=== PATIENT | female | born 1945 | race Hispanic/Latino ===

== ENCOUNTER 2018-08-28 14:00 | Emergency (ER) | payer OTHER ==
--- NOTE | 2018-08-28 15:39 | RAD REPORT ---
EXAM DESCRIPTION: CT - [id number] - 08/28/2018 3:22 pm CLINICAL HISTORY: Trauma, head and neck injury. PAIN COMPARISON: No comparisons TECHNIQUE: Axial 5 mm thick images of the head were obtained. Axial 2 mm thick images of the cervical spine were obtained with sagittal and coronal reconstruction images generated and reviewed. All CT scans are performed using dose optimization technique as appropriate and may include automated exposure control or mA/KV adjustment according to patient size. FINDINGS: CT HEAD WITHOUT CONTRAST: No acute hemorrhage, hydrocephalus or extra-axial collection is identified.No areas of brain edema or midline shift. The paranasal sinuses and mastoids are clear.The calvarium is intact. CT CERVICAL SPINE WITHOUT CONTRAST: No fracture or subluxation.Multilevel lower cervical degenerative changes present.No prevertebral sof t tissues swelling is identified. IMPRESSION: No acute intracranial or cervical spine findings. Mild lower cervical spondylosis.
--- NOTE | 2018-08-28 15:56 | ER ---
Nurse's Notes [facility] Name: Kelsi Rolon Age: 72 yrs Sex: Female : 1945 Arrival Date: 08/28/2018 Time: 14:05 Bed 12 Private MD: None, None Diagnosis: Radiculopathy, cervical region Presentation: 08/28 14:08 Presenting complaint: Patient states: "The back of my neck has been hurting for 3 days. aj1 I haven't been able to sleep" Patient denies injury to her neck. Reports that pain radiates into both of her shoulders. Transition of care: patient was not received from another setting of care. Onset of symptoms was August 25, 2018. Risk Assessment: Do you want to hurt yourself or someone else? Patient reports no desire to harm self or others. Initial Sepsis Screen: Does the patient meet any 2 criteria? No. Patient's initial sepsis screen is negative. Does the patient have a suspected source of infection? No. Patient's initial sepsis screen is negative. Care prior to arrival: None. 14:08 Method Of Arrival: Ambulatory aj1 14:08 Acuity: YADIEL 4 aj1 Triage Assessment: 14:10 General: Appears in no apparent distress. uncomfortable, Behavior is calm, cooperative, aj1 appropriate for age. Pain: Complains of pain in neck Pain radiates to left trapezius, right trapezius and neck Pain currently is 8 out of 10 on a pain scale. Quality of pain is described as sharp, Pain began 2-3 days ago. Is continuous, Aggravated by repositioning. Neuro: Level of Consciousness is awake, alert, obeys commands. Cardiovascular: Patient's skin is warm and dry. Respiratory: Airway is patent Respiratory effort is even, unlabored, Respiratory pattern is regular, symmetrical. Historical: - Allergies: 14:10 No Known Allergies; aj1 - Home Meds: 14:10 tamoxifen oral oral [Active]; Folic Acid Oral [Active]; Methotrexate Sodium Oral aj1 [Active]; - PMHx: 14:10 breast cancer- in remission; Rheumatoid Arthritis; aj1 - Immunization history:: Flu vaccine is up to date. - Social history:: Smoking status: Patient/guardian denies using tobacco. - Ebola Screening: : Patient denies travel to an Ebola-affected area in the 21 days before illness onset. Screenin:20 Abuse screen: Denies threats or abuse. Denies injuries from another. Nutritional ss screening: No deficits noted. Tuberculosis screening: No symptoms or risk factors identified. Never had TB. Fall Risk None identified. Assessment: 15:20 General: Appears in no apparent distress. comfortable, Behavior is calm, cooperative, ss Denies fever, feeling ill, fatigue, chills. Pain: Complains of pain in right trapezius and left trapezius and neck Pain currently is 8 out of 10 on a pain scale. Quality of pain is described as aching, tender. Neuro: Level of Consciousness is awake, alert, obeys commands, Oriented to person, place, time, situation. Cardiovascular: Capillary refill < 3 seconds is brisk in bilateral fingers. Respiratory: Airway is patent Respiratory effort is even, unlabored, Respiratory pattern is regular, symmetrical. EENT: Oral mucosa is moist. Throat is clear. Derm: Skin is intact, is healthy with good turgor, Skin is pink, warm \\T\\ dry. normal. Musculoskeletal: Circulation, motion, and sensation intact. Range of motion: intact in all extremities, Swelling absent. Vital Signs: 14:10 BP 149 / 83; Pulse 75; Resp 18; Temp 97.9; Pulse Ox 98% on R/A; Weight 78.47 kg (R); aj1 Height 5 ft. 0 in. (152.40 cm) (R); Pain 8/10; 14:10 Body Mass Index 33.79 (78.47 kg, 152.40 cm) aj1 ED Course: 14:05 Patient arrived in ED. mr 14:07 None, None is Private Physician. mr 14:09 Triage completed. aj1 14:10 Arm band placed on Patient placed in an exam room. aj1 15:02 Natalie Nieves FNP-C is PHCP. kb 15:02 Anthony London MD is Attending Physician. kb 15:20 Susan Monique RN is Primary Nurse. ss 15:20 Patient has correct armband on for positive identification. Bed in low position. Call ss light in reach. 15:22 CT Head C Spine In Process Unspecified. EDMS 15:23 CT completed. Patient tolerated procedure well. Patient moved to CT via wheelchair. vr Patient moved back from CT. 16:02 No provider procedures requiring assistance completed. Patient did not have IV access ss during this emergency room visit. Administered Medications: No medications were administered Outcome: 15:56 Discharge ordered by . antonio 16:02 Discharged to home ambulatory, with family. ss 16:02 Condition: good 16:02 Discharge instructions given to patient, family, Instructed on discharge instructions, follow up and referral plans. medication usage, Demonstrated understanding of instructions, follow-up care, medications, Prescriptions given X 2. 16:03 Patient left the ED. ss Signatures: Dispatcher [employer] EDAZ Natalie Nieves, AURA MASTERSP-Regi Murrieta, RN RN aj1 Cary Mackenzie mr Susan Monique, RN RN Amrita Varghese
--- NOTE | 2018-08-28 15:57 | EDPHYS ---
Physician Documentation [facility] Name: Kelsi Rolon Age: 72 yrs Sex: Female : 1945 Arrival Date: 08/28/2018 Time: 14:05 Bed 12 Private MD: None, None ED Physician Anthony London HPI: 08/28 15:22 This 72 yrs old Female presents to ER via Ambulatory with complaints of Neck kb Problem, Shoulder Pain, Back Pain. 15:22 The patient or guardian complains of pain, that is acute, tenderness. The symptoms are kb located diffusely. Onset: The symptoms/episode began/occurred 4 day(s) ago. Context: The problem was sustained at home, The neck injury/problem resulted from from unknown cause. Associated signs and symptoms: Pertinent positives: This patient does not have any pertinent positive signs or symptoms associated with neck pain. The patient denies any alcohol use. The patient is not apparently intoxicated. No neurological symptoms were experienced by the patient prior to arrival in the emergency department. The pain radiates to the left trapezius and right trapezius. Modifying factors: The symptoms are alleviated by nothing. the symptoms are aggravated by pressure. Severity of symptoms: At their worst the symptoms were moderate, in the emergency department the symptoms are unchanged. The patient has not experienced similar symptoms in the past. The patient has not recently seen a physician. Historical: - Allergies: 14:10 No Known Allergies; aj1 - Home Meds: 14:10 tamoxifen oral oral [Active]; Folic Acid Oral [Active]; Methotrexate Sodium Oral aj1 [Active]; - PMHx: 14:10 breast cancer- in remission; Rheumatoid Arthritis; aj1 - Immunization history:: Flu vaccine is up to date. - Social history:: Smoking status: Patient/guardian denies using tobacco. - Ebola Screening: : Patient denies travel to an Ebola-affected area in the 21 days before illness onset. ROS: 15:21 Constitutional: Negative for fever, chills, and weight loss, Cardiovascular: Negative kb for chest pain, palpitations, and edema, Respiratory: Negative for shortness of breath, cough, wheezing, and pleuritic chest pain, Abdomen/GI: Negative for abdominal pain, nausea, vomiting, diarrhea, and constipation, MS/Extremity: Negative for injury and deformity, Skin: Negative for injury, rash, and discoloration, Neuro: Negative for headache, weakness, numbness, tingling, and seizure. 15:21 Neck: Positive for pain with movement, pain at rest. 15:21 Back: Positive for pain at rest, pain with movement, of the left trapezius and right trapezius. Exam: 15:21 Constitutional: This is a well developed, well nourished patient who is awake, alert, kb and in no acute distress. Head/Face: Normocephalic, atraumatic. Neck: Trachea midline, no thyromegaly or masses palpated, and no cervical lymphadenopathy. Supple, full range of motion without nuchal rigidity, or vertebral point tenderness. No Meningismus. Chest/axilla: Normal chest wall appearance and motion. Nontender with no deformity. No lesions are appreciated. Cardiovascular: Regular rate and rhythm with a normal S1 and S2. No gallops, murmurs, or rubs. Normal PMI, no JVD. No pulse deficits. Respiratory: Lungs have equal breath sounds bilaterally, clear to auscultation and percussion. No rales, rhonchi or wheezes noted. No increased work of breathing, no retractions or nasal flaring. Abdomen/GI: Soft, non-tender, with normal bowel sounds. No distension or tympany. No guarding or rebound. No evidence of tenderness throughout. Skin: Warm, dry with normal turgor. Normal color with no rashes, no lesions, and no evidence of cellulitis. MS/ Extremity: Pulses equal, no cyanosis. Neurovascular intact. Full, normal range of motion. Neuro: Awake and alert, GCS 15, oriented to person, place, time, and situation. Cranial nerves II-XII grossly intact. Motor strength 5/5 in all extremities. Sensory grossly intact. Cerebellar exam normal. Normal gait. 15:21 Back: pain, that is mild, of the left trapezius and right trapezius, ROM is normal, normal spinal alignment noted. Vital Signs: 14:10 BP 149 / 83; Pulse 75; Resp 18; Temp 97.9; Pulse Ox 98% on R/A; Weight 78.47 kg (R); aj1 Height 5 ft. 0 in. (152.40 cm) (R); Pain 8/10; 14:10 Body Mass Index 33.79 (78.47 kg, 152.40 cm) aj1 MDM: 15:02 Patient medically screened. kb 15:21 Data reviewed: vital signs, nurses notes. Data interpreted: Pulse oximetry: on room air kb is 98 %. Interpretation: normal. 15:55 Counseling: I had a detailed discussion with the patient and/or guardian regarding: the kb historical points, exam findings, and any diagnostic results supporting the discharge/admit diagnosis, radiology results, the need for outpatient follow up, a family practitioner, to return to the emergency department if symptoms worsen or persist or if there are any questions or concerns that arise at home. 08/28 15:11 Order name: CT Head C Spine; Complete Time: 15:41 kb Administered Medications: No medications were administered Disposition: 08/28/18 15:56 Discharged to Home. Impression: Radiculopathy, cervical region. - Condition is Stable. - Discharge Instructions: Cervical Radiculopathy, [id number]. - Prescriptions for Cyclobenzaprine 10 mg Oral Tablet - take 1 tablet by ORAL route every 8 hours As needed; 21 tablet. Diclofenac Sodium 75 mg Oral Tablet, Delayed Release (E.C.) - take 1 tablet by ORAL route 2 times per day As needed; 30 tablet. - Medication Reconciliation Form, Thank You Letter, Antibiotic Education, Prescription Opioid Use form. - Follow up: Emergency Department; When: As needed; Reason: Worsening of condition. Follow up: Private Physician; When: 2 - 3 days; Reason: Recheck today's complaints, Continuance of care, Re-evaluation by your physician. Addendum: 09/02/2018 06:22 Co-signature as Attending Physician, Anthony London MD I agree with the assessment and c phillip plan of care. Signatures: Dispatcher [employer] Natalie Magallanes, LEGAL PROJECT MANAGER-C LEGAL PROJECT MANAGER-Ckb Regi Marcial, RN RN aj1 Anthony London MD MD cha Smirch, Shelby, RN RN ss Corrections: (The following items were deleted from the chart) 08/28 16:03 15:56 08/28/2018 15:56 Discharged to Home. Impression: Radiculopathy, cervical region. ss Condition is Stable. Forms are Medication Reconciliation Form, Thank You Letter, Antibiotic Education, Prescription Opioid Use. Follow up: Emergency Department; When: As needed; Reason: Worsening of condition. Follow up: Private Physician; When: 2 - 3 days; Reason: Recheck today's complaints, Continuance of care, Re-evaluation by your physician. kb
== END 2018-08-28 16:03 | disposition home or self-care (01) ==
LOC: ER 14:00
DX: M54.12 Radiculopathy, cervical region (principal); Z85.3 Personal history of malignant neoplasm of breast
CPT/HCPCS: 70450; 72125; 99284

== ENCOUNTER 2021-06-24 15:39 | Emergency (ER) | payer OTHER ==
--- NOTE | 2021-06-24 17:05 | RAD REPORT ---
EXAM DESCRIPTION: RAD - Forearm Left - 06/24/2021 4:59 pm CLINICAL HISTORY: Left forearm pain status post injury FINDINGS: No fracture is seen Calcifications within the dorsal soft tissues of the upper forearm.
--- NOTE | 2021-06-24 17:08 | RAD REPORT ---
EXAM DESCRIPTION: RAD -Hand Left 3 View - 06/24/2021 4:59 pm CLINICAL HISTORY: Left hand pain status post injury FINDINGS: No fracture or dislocation is seen. The bones are osteoporotic. Erosive arthropathy involves the PIP joints. Calcification involves soft tissues of the wrist. If patient continues to have symptoms to suggest an occult fracture follow-up x-ray in 7 days would b e recommended
--- NOTE | 2021-06-24 17:30 | ER ---
Nurse's Notes [facility] Name: Kelsi Rolon Age: 75 yrs Sex: Female : 1945 Arrival Date: 06/24/2021 Time: 15:39 Bed Waiting Private MD: Diagnosis: Pain in left wrist;Fall on same level from slipping, tripping and stumbling without subsequent striking against object Presentation: 06/24 16:01 Chief complaint: Patient states: "I was pushing a trash can and I fell and hurt my left aa5 wrist". Coronavirus screen: At this time, the client does not indicate any symptoms associated with coronavirus-19. Ebola Screen: Patient negative for fever greater than or equal to 101.5 degrees Fahrenheit, and additional compatible Ebola Virus Disease symptoms. Initial Sepsis Screen: Does the patient meet any 2 criteria? No. Patient's initial sepsis screen is negative. Does the patient have a suspected source of infection? No. Patient's initial sepsis screen is negative. Risk Assessment: Do you want to hurt yourself or someone else? Patient reports no desire to harm self or others. Onset of symptoms was June 23, 2021. 16:01 Method Of Arrival: Ambulatory aa5 16:01 Acuity: YADIEL 4 aa5 Historical: - Allergies: 16:03 No Known Allergies; aa5 - PMHx: 16:01 breast cancer- in remission; Rheumatoid Arthritis; aa5 - Immunization history:: Client reports receiving the 2nd dose of the Covid vaccine. - Social history:: Smoking status: Patient denies any tobacco usage or history of. Assessment: 17:37 Reassessment: Patient is alert, oriented x 3, equal unlabored respirations, skin aa5 warm/dry/pink. Vital Signs: 16:01 BP 153 / 90; Pulse 70; Resp 18 S; Temp 98.8(TE); Pulse Ox 96% on R/A; Weight 78.93 kg aa5 (R); Height 4 ft. 11 in. (149.86 cm) (R); 16:01 Body Mass Index 35.14 (78.93 kg, 149.86 cm) aa5 ED Course: 15:39 Patient arrived in ED. as 16:00 [facility]C [facility]. kb 16:00 Kirit Carlin MD is Attending Physician. kb 16:01 Arm band placed on. aa5 16:02 Triage completed. aa5 16:59 Forearm Left XRAY In Process Unspecified. EDMS 16:59 Hand Left 3 View XRAY In Process Unspecified. EDMS 17:38 No provider procedures requiring assistance completed. Patient did not have IV access aa5 during this emergency room visit. Administered Medications: No medications were administered Outcome: 17:30 Discharge ordered by . kb 17:37 Discharged to home ambulatory, with family. aa5 17:37 Condition: stable 17:37 Discharge instructions given to patient, Instructed on discharge instructions, follow up and referral plans. Demonstrated understanding of instructions, follow-up care. 17:38 Patient left the ED. aa5 Signatures: Dispatcher [employer] EDNatalie Dalton, RIPENING ROOM ATTENDANT-C RIPENING ROOM ATTENDANT-Ronna Alvarado Audri, RN RN aa5 Corrections: (The following items were deleted from the chart) 16:04 16:01 Temp 98.8F Temporal; aa5 aa5
--- NOTE | 2021-06-24 17:30 | EDPHYS ---
Physician Documentation [facility] Name: Kelsi Rolon Age: 75 yrs Sex: Female : 1945 Arrival Date: 06/24/2021 Time: 15:39 Bed Waiting Private MD: ED Physician Kirit Carlin HPI: 06/24 23:10 This 75 yrs old Female presents to ER via Ambulatory with complaints of Wrist kb Injury. 23:10 The patient or guardian reports pain. The complaints affect the left wrist diffusely. kb Context: The problem was sustained at home, resulted from a fall. Onset: The symptoms/episode began/occurred yesterday. Modifying factors: The symptoms are alleviated by nothing, the symptoms are aggravated by nothing. Associated signs and symptoms: The patient has no apparent associated signs or symptoms. The patient has not experienced similar symptoms in the past. The patient has not recently seen a physician. Patient reports she was pushing a trash can full of debris to the road and slipped and fell yesterday. States she did not have any pain yesterday, but this morning woke up with pain to left wrist.. Historical: - Allergies: 16:03 No Known Allergies; aa5 - PMHx: 16:01 breast cancer- in remission; Rheumatoid Arthritis; aa5 - Immunization history:: Client reports receiving the 2nd dose of the Covid vaccine. - Social history:: Smoking status: Patient denies any tobacco usage or history of. ROS: 23:10 Constitutional: Negative for fever, chills, and weight loss. kb 23:10 MS/extremity: Positive for injury or acute deformity, pain, of the left wrist. 23:10 All other systems are negative. Exam: 23:12 Constitutional: This is a well developed, well nourished patient who is awake, alert, kb and in no acute distress. Head/Face: Normocephalic, atraumatic. ENT: Moist Mucous membranes Respiratory: Respirations even and unlabored. No increased work of breathing, no retractions or nasal flaring. Skin: Warm, dry with normal turgor. Normal color. Neuro: Awake and alert, GCS 15, oriented to person, place, time, and situation. Moves all extremities. Normal gait. Psych: Awake, alert, with orientation to person, place and time. Behavior, mood, and affect are within normal limits. 23:12 Musculoskeletal/extremity: Extremities: grossly normal except: noted in the left wrist: pain, ROM: intact in all extremities, Circulation is intact in all extremities. Sensation intact. Vital Signs: 16:01 BP 153 / 90; Pulse 70; Resp 18 S; Temp 98.8(TE); Pulse Ox 96% on R/A; Weight 78.93 kg aa5 (R); Height 4 ft. 11 in. (149.86 cm) (R); 16:01 Body Mass Index 35.14 (78.93 kg, 149.86 cm) aa5 MDM: 16:03 Patient medically screened. kb 23:04 Data reviewed: vital signs, nurses notes. Data interpreted: Pulse oximetry: on room air kb is 96 %. Interpretation: normal. Counseling: I had a detailed discussion with the patient and/or guardian regarding: the historical points, exam findings, and any diagnostic results supporting the discharge/admit diagnosis, radiology results, the need for outpatient follow up, a orthopedic surgeon, to return to the emergency department if symptoms worsen or persist or if there are any questions or concerns that arise at home. 06/24 16:03 Order name: Forearm Left XRAY; Complete Time: 17:06 kb 06/24 16:03 Order name: Hand Left 3 View XRAY; Complete Time: 17:08 kb Administered Medications: No medications were administered Disposition: 06/25 08:07 Co-signature as Attending Physician, Kirit Carlin MD I agree with the assessment and kdr plan of care. Disposition Summary: 06/24/21 17:30 Discharge Ordered Location: Home kb Condition: Stable kb Diagnosis - Pain in left wrist kb - Fall on same level from slipping, tripping and stumbling without subsequent kb striking against object Followup: kb - With: Emergency Department - When: As needed - Reason: Worsening of condition Followup: kb - With: Private Physician - When: 2 - 3 days - Reason: Recheck today's complaints, Continuance of care, Re-evaluation by your physician Discharge Instructions: - Discharge Summary Sheet kb - Wrist Pain, Adult, [id number] kb Forms: - Medication Reconciliation Form kb - Thank You Letter kb - Antibiotic Education kb - Prescription Opioid Use kb Signatures: Dispatcher [employer] EDNatalie Dalton FNP-C FNP-Ckb Kirit Carlin MD MD kdr Vianney Silva, RN RN aa5
[2021-06-24 17:49] VITALS: BP 153/90; TEMP 98.8; O2SAT 96
== END 2021-06-24 17:38 | disposition home or self-care (01) ==
LOC: ER 15:39
DX: M25.532 Pain in left wrist (principal); W01.0XXA Fall on same level from slipping, tripping and stumbling without subsequent striking against object, initial encounter; Y93.89 Activity, other specified
CPT/HCPCS: 99283